=== PATIENT | male | born 1970 | race Two or more races ===

== ENCOUNTER 2024-05-26 11:44 | Emergency (ER) | payer MEDICARE, MEDICAID ==
[~2024-05-26] VITALS: Ht 170.2 cm; Wt 65.0 kg
[2024-05-26] MEDS ORDERED: CLON0.1T PO (13:06)
[2024-05-26] MEDS ORDERED: BACL10TA PO (13:06)
[2024-05-26] MEDS ORDERED: TRAZ1TAB12 PO (13:06)
[2024-05-26 13:22] VITALS: BP 107/71; PULSE 60; RESP 16; TEMP 98.5; O2SAT 98
[2024-05-27] MEDS ORDERED: CLON0.5T3 PO (15:51)
[2024-05-27] MEDS ORDERED: FAMO20TA10 PO (15:52)
[2024-05-27] MEDS ORDERED: DOCU-94 PO (15:53)
[2024-05-27] MEDS ORDERED: SENN-58 PO (15:54)
[2024-05-27] MEDS ORDERED: METH500T3 PO (15:55)
[2024-05-27] MEDS ORDERED: TIZA4CAP PO (15:55)
== END 2024-05-26 13:27 | disposition home or self-care (01) ==
LOC: ER 11:44
DX: F41.9 Anxiety disorder, unspecified (principal); I10 Essential (primary) hypertension; K21.9 Gastro-esophageal reflux disease without esophagitis; Z76.0 Encounter for issue of repeat prescription

== ENCOUNTER 2024-05-27 09:06 | Inpatient (IN) | payer MEDICARE, MEDICAID ==
[~2024-05-27] VITALS: Ht 162.6 cm; Wt 45.1 kg
[~2024-05-27 09:06] MED LIST: BACL10TA PO; CLON0.1T PO; TRAZ1TAB12 PO
[2024-05-27 09:25] VITALS: PULSE 52; RESP 15; O2SAT 98
[2024-05-27 09:52] LABS: Basophils # (auto) 0 10 ^3/uL (0-0.2); Eosinophils # (auto) 0.2 10 ^3/uL (0-0.8); Eosinophils % (auto) 4.7 % (0.0-7.0); Hematocrit 44.7 % (41.0-53.0); Hemoglobin 15.1 g/dL (13.5-17.5); Lymphocytes # (auto) 0.8 10 ^3/uL (0.4-5.4); Lymphocytes % (auto) 24.3 % (10.0-50.0); Mean Corpuscular Hemoglobin 30.3 pg (28.0-32.0); Mean Corpuscular Hgb Conc. 33.8 g/dL (32.0-36.0); Mean Corpuscular Volume 89.6 fL (80.0-100.0); Monocytes # (auto) 0.3 10 ^3/uL (0-1.3); Monocytes % (auto) 8.2 % (0.0-12.0); Neutrophils # (auto) 2.1 10 ^3/uL (1.6-8.6); Neutrophils % (auto) 61.8 % (37.0-80.0); Nucleated Red Blood Cells % 0.1 %; Platelet Count (auto) 160 10^3/uL (140-450); Red Blood Cells 4.99 10^6/uL (4.5-5.90); Red Cell Distribution Width 13.5 % (11.8-14.3); White Blood Cell 3.5 10^3/uL (4.4-10.8)
[2024-05-27 10:02] LABS: Chloride 109 mmol/L (98-107); Potassium 4.3 mmol/L (3.5-5.1); Sodium 141 mmol/L (136-145)
[2024-05-27 10:03] LABS: Anion Gap 0 (5-15); Carbon Dioxide 32 mmol/L (20-30)
[2024-05-27 10:04] LABS: Calcium 9.7 mg/dL (8.7-10.4)
[2024-05-27 10:08] LABS: BUN/Creatinine Ratio 10.3 (10.0-20.0); Blood Urea Nitrogen 12 mg/dL (9-23); Glucose 88 mg/dL (74-106)
[2024-05-27] MEDS: SODIUM CHLORIDE 0.9% 1,000 ML IVB ONE (10:25)
[2024-05-27] MEDS: SODIUM CHLORIDE 0.9% 1,000 ML IV ONE (11:48)
[2024-05-27] MEDS: SODIUM CHLORIDE 0.9% 1,000 ML IV SCH (12:00)
[2024-05-27] MEDS ORDERED: NITROGLYCERIN 0.4 MG SL TAB SL PRN (12:15)
[2024-05-27] MEDS ORDERED: ONDANSETRON HCL 4 MG/2 ML VIAL IV PRN (12:15)
[2024-05-27] MEDS ORDERED: DOCUSATE SOD 100 MG CAP PO PRN (12:15)
[2024-05-27] MEDS: LORazepam 2MG/ML-1ML VIAL IV ONE (13:20)
[2024-05-27] MEDS: PANTOPRAZOLE 40 MG/10 ML VIAL INJ IV ONE (13:20)
[2024-05-27] MEDS ORDERED: CLON0.5T3 PO (15:51)
[2024-05-27] MEDS ORDERED: FAMO20TA10 PO (15:52)
[2024-05-27] MEDS ORDERED: DOCU-94 PO (15:53)
[2024-05-27] MEDS ORDERED: SENN-58 PO (15:54)
[2024-05-27] MEDS ORDERED: TIZA4CAP PO (15:55)
[2024-05-27] MEDS ORDERED: METH500T3 PO (15:55)
[2024-05-27 17:00] VITALS: BP 142/90; PULSE 58; RESP 16; TEMP 97.7; O2SAT 97
[2024-05-27 20:00] VITALS: PULSE 58; PULSE 67; RESP 16; O2SAT 97
[2024-05-27] MEDS: CYCLOBENZAPRINE HCL 10 MG TAB PO ONE (20:28)
[2024-05-27 21:00] VITALS: BP 122/74; PULSE 65; RESP 18; TEMP 97.9; O2SAT 96
[2024-05-27] MEDS: CYCLOBENZAPRINE HCL 10 MG TAB PO SCH (22:00)
[2024-05-28] VITALS (7 sets, daily range): BP systolic 122–134; BP diastolic 73–98; PULSE 55–116; RESP 16–20; TEMP 97.6–98.6; O2SAT 96–99
[2024-05-28 06:00] LABS: Alanine Aminotransferase 41 U/L (7-40); Albumin 4.3 g/dL (3.2-4.8); Alkaline Phosphatase 81 U/L (46-116); Anion Gap 6 (5-15); Aspartate Aminotransferase 35 U/L (13-40); BUN/Creatinine Ratio 10.7 (10.0-20.0); Bilirubin, Total 0.9 mg/dL (0.2-1.0); Blood Urea Nitrogen 11 mg/dL (9-23); Calcium 9.3 mg/dL (8.7-10.4); Carbon Dioxide 27 mmol/L (20-30); Chloride 107 mmol/L (98-107); Glucose 84 mg/dL (74-106); Potassium 4.5 mmol/L (3.5-5.1); Sodium 140 mmol/L (136-145); Total Protein 6.8 g/dL (5.7-8.2)
[2024-05-28 07:17] LABS: Basophils # (auto) 0 10 ^3/uL (0-0.2); Basophils % (auto) 0.9 % (0.0-2.0); Eosinophils # (auto) 0.2 10 ^3/uL (0-0.8); Eosinophils % (auto) 4.2 % (0.0-7.0); Hematocrit 45.5 % (41.0-53.0); Hemoglobin 15.7 g/dL (13.5-17.5); Lymphocytes % (auto) 23.2 % (10.0-50.0); Mean Corpuscular Hemoglobin 30.4 pg (28.0-32.0); Mean Corpuscular Hgb Conc. 34.5 g/dL (32.0-36.0); Mean Corpuscular Volume 88.3 fL (80.0-100.0); Monocytes # (auto) 0.3 10 ^3/uL (0-1.3); Monocytes % (auto) 7.4 % (0.0-12.0); Neutrophils # (auto) 2.7 10 ^3/uL (1.6-8.6); Neutrophils % (auto) 64.3 % (37.0-80.0); Nucleated Red Blood Cells % 0.2 %; Platelet Count (auto) 162 10^3/uL (140-450); Red Blood Cells 5.15 10^6/uL (4.5-5.90); Red Cell Distribution Width 13.2 % (11.8-14.3); White Blood Cell 4.2 10^3/uL (4.4-10.8)
[2024-05-28 07:48] LABS: Urine Bacteria None Seen /hpf (None Seen)
[2024-05-28 08:13] LABS: Urine Blood Negative /uL (Negative); Urine Clarity Clear (Clear); Urine Color Colorless (Yellow); Urine Protein, UAD Negative (Negative); Urine Specific Gravity 1.012 (1.001-1.035); Urine Urobilinogen Normal (Negative); Urine WBC 1 /hpf (0 - 3)
[2024-05-28] MEDS: ENOXAPARIN SOD 40 MG/0.4 ML SYRINGE SC SCH (08:33)
[2024-05-28] MEDS: PANTOPRAZOLE 40 MG/10 ML VIAL INJ IV SCH (08:33)
[2024-05-28 14:38] LABS: Amphetamine Screen, Urine Neg (NEGATIVE); Benzodiazephine Screen, Urine Neg (NEGATIVE)
[2024-05-28 14:40] LABS: Barbiturate Scree,Urine Neg (NEGATIVE); Cocaine Screen, Urine Neg (NEGATIVE); Opiate Scree,Urine Neg (NEGATIVE)
[2024-05-28 14:41] LABS: Cannabinoid Screen, Urine Neg (NEGATIVE); Phencyclidine Screen, Urine Neg (NEGATIVE)
[2024-05-28] MEDS: LORazepam 2MG/ML-1ML VIAL IV PRN (17:11)
[2024-05-28] MEDS: clonazePAM 0.5 MG TAB PO SCH (21:42)
[2024-05-28] MEDS: BACLOFEN 10 MG TAB PO SCH (21:42)
[2024-05-29] VITALS (7 sets, daily range): BP systolic 129–149; BP diastolic 81–97; PULSE 60–89; RESP 17–20; TEMP 97.7–98.3; O2SAT 96–99
[2024-05-29 05:56] LABS: Basophils # (auto) 0 10 ^3/uL (0-0.2); Basophils % (auto) 0.6 % (0.0-2.0); Eosinophils # (auto) 0.2 10 ^3/uL (0-0.8); Eosinophils % (auto) 3.2 % (0.0-7.0); Hematocrit 45.4 % (41.0-53.0); Lymphocytes # (auto) 1.2 10 ^3/uL (0.4-5.4); Lymphocytes % (auto) 20.3 % (10.0-50.0); Mean Corpuscular Hemoglobin 30.7 pg (28.0-32.0); Mean Corpuscular Hgb Conc. 35.2 g/dL (32.0-36.0); Mean Corpuscular Volume 87.4 fL (80.0-100.0); Monocytes # (auto) 0.6 10 ^3/uL (0-1.3); Monocytes % (auto) 10.8 % (0.0-12.0); Neutrophils # (auto) 3.8 10 ^3/uL (1.6-8.6); Neutrophils % (auto) 65.1 % (37.0-80.0); Nucleated Red Blood Cells % 0.1 %; Platelet Count (auto) 170 10^3/uL (140-450); Red Blood Cells 5.19 10^6/uL (4.5-5.90); Red Cell Distribution Width 13.3 % (11.8-14.3); White Blood Cell 5.8 10^3/uL (4.4-10.8)
[2024-05-29 05:58] LABS: Alanine Aminotransferase 36 U/L (7-40); Albumin 4.5 g/dL (3.2-4.8); Alkaline Phosphatase 81 U/L (46-116); Anion Gap 6 (5-15); Aspartate Aminotransferase 35 U/L (13-40); BUN/Creatinine Ratio 7.3 (10.0-20.0); Blood Urea Nitrogen 7 mg/dL (9-23); Calcium 9.5 mg/dL (8.7-10.4); Carbon Dioxide 25 mmol/L (20-30); Chloride 108 mmol/L (98-107); Glucose 88 mg/dL (74-106); Potassium 3.9 mmol/L (3.5-5.1); Sodium 139 mmol/L (136-145)
[2024-05-29] MEDS: MORPHINE SULFATE INJ 2 MG/ml SYRG IV PRN (10:04)
[2024-05-29] MEDS: traZODone HCL 50 MG TAB PO SCH (22:00)
[2024-05-30] VITALS (7 sets, daily range): BP systolic 110–130; BP diastolic 60–94; PULSE 60–98; RESP 16–22; TEMP 97.8–98.6; O2SAT 93–100
[2024-05-30 06:30] LABS: Basophils # (auto) 0 10 ^3/uL (0-0.2); Basophils % (auto) 0.6 % (0.0-2.0); Eosinophils # (auto) 0.3 10 ^3/uL (0-0.8); Hematocrit 45.7 % (41.0-53.0); Hemoglobin 16.4 g/dL (13.5-17.5); Lymphocytes # (auto) 1.1 10 ^3/uL (0.4-5.4); Lymphocytes % (auto) 21.1 % (10.0-50.0); Mean Corpuscular Hemoglobin 31.2 pg (28.0-32.0); Mean Corpuscular Hgb Conc. 35.8 g/dL (32.0-36.0); Mean Corpuscular Volume 87.2 fL (80.0-100.0); Monocytes # (auto) 0.4 10 ^3/uL (0-1.3); Monocytes % (auto) 8.9 % (0.0-12.0); Neutrophils # (auto) 3.2 10 ^3/uL (1.6-8.6); Neutrophils % (auto) 63.4 % (37.0-80.0); Platelet Count (auto) 168 10^3/uL (140-450); Red Blood Cells 5.25 10^6/uL (4.5-5.90); Red Cell Distribution Width 13.3 % (11.8-14.3)
[2024-05-30 06:35] LABS: Alanine Aminotransferase 39 U/L (7-40); Albumin 4.4 g/dL (3.2-4.8); Alkaline Phosphatase 84 U/L (46-116); Anion Gap 7 (5-15); Aspartate Aminotransferase 36 U/L (13-40); BUN/Creatinine Ratio 8.5 (10.0-20.0); Blood Urea Nitrogen 8 mg/dL (9-23); Calcium 9.9 mg/dL (8.7-10.4); Carbon Dioxide 26 mmol/L (20-30); Chloride 105 mmol/L (98-107); Glucose 79 mg/dL (74-106); Potassium 3.8 mmol/L (3.5-5.1); Sodium 138 mmol/L (136-145)
[2024-05-30 06:36] LABS: Bilirubin, Total 1.2 mg/dL (0.2-1.0)
[2024-05-30] MEDS: ACETAMINOPHEN 325 MG TAB PO PRN (11:37)
[2024-05-30] MEDS ORDERED: MORPHINE SULFATE INJ 2 MG/ml SYRG IV PRN (14:30)
[2024-05-30] MEDS: TAMSULOSIN HYDROCHLORIDE 0.4 MG CAP PO ONE (16:43)
[2024-05-31 05:00] VITALS: BP 107/74; PULSE 65; RESP 16; TEMP 97.9; O2SAT 96
[2024-05-31] MEDS: PANTOPRAZOLE 40 MG TAB PO SCH (05:20)
[2024-05-31 08:11] LABS: Alanine Aminotransferase 40 U/L (7-40); Albumin 4.2 g/dL (3.2-4.8); Alkaline Phosphatase 80 U/L (46-116); Anion Gap 8 (5-15); Aspartate Aminotransferase 35 U/L (13-40); BUN/Creatinine Ratio 16.5 (10.0-20.0); Blood Urea Nitrogen 15 mg/dL (9-23); Calcium 9.6 mg/dL (8.7-10.4); Carbon Dioxide 24 mmol/L (20-30); Chloride 106 mmol/L (98-107); Glucose 73 mg/dL (74-106); Potassium 3.8 mmol/L (3.5-5.1); Sodium 138 mmol/L (136-145)
[2024-05-31 08:12] LABS: Total Protein 6.7 g/dL (5.7-8.2)
[2024-05-31 08:30] LABS: Basophils # (auto) 0 10 ^3/uL (0-0.2); Basophils % (auto) 0.8 % (0.0-2.0); Eosinophils # (auto) 0.2 10 ^3/uL (0-0.8); Hematocrit 44.4 % (41.0-53.0); Hemoglobin 15.5 g/dL (13.5-17.5); Lymphocytes # (auto) 0.7 10 ^3/uL (0.4-5.4); Lymphocytes % (auto) 15.1 % (10.0-50.0); Mean Corpuscular Hemoglobin 30.2 pg (28.0-32.0); Mean Corpuscular Hgb Conc. 34.8 g/dL (32.0-36.0); Mean Corpuscular Volume 86.8 fL (80.0-100.0); Monocytes # (auto) 0.4 10 ^3/uL (0-1.3); Monocytes % (auto) 8.1 % (0.0-12.0); Neutrophils # (auto) 3.4 10 ^3/uL (1.6-8.6); Platelet Count (auto) 163 10^3/uL (140-450); Red Blood Cells 5.12 10^6/uL (4.5-5.90); Red Cell Distribution Width 13.1 % (11.8-14.3); White Blood Cell 4.7 10^3/uL (4.4-10.8)
[2024-05-31 08:44] VITALS: BP 115/64; PULSE 79; RESP 20; TEMP 98.4; O2SAT 98
[2024-05-31 12:38] VITALS: BP 104/75; PULSE 59; RESP 18; TEMP 98.1; O2SAT 96
[2024-05-31] MEDS ORDERED: BACL10TA PO (14:23)
[2024-05-31 15:06] LABS: Urine WBC None Seen /hpf (0 - 3)
[2024-05-31 15:58] LABS: Urine Bacteria FEW /hpf (None Seen); Urine Blood 3+ /uL (Negative); Urine Budding Yeast OCCASIONAL /hpf (None Seen); Urine Clarity Turbid (Clear); Urine Color Light-Orange (Yellow); Urine Mucus FEW (None Seen); Urine Protein, UAD 1+ (Negative); Urine Specific Gravity 1.023 (1.001-1.035); Urine Urobilinogen Normal (Negative); Urine pH 5.5 (5.0-9.0)
[2024-05-31 17:10] VITALS: BP 114/82; PULSE 68; RESP 19; TEMP 98.6; O2SAT 99
[2024-05-31] MEDS: TAMSULOSIN HYDROCHLORIDE 0.4 MG CAP PO SCH (18:31)
[2024-05-31 21:00] VITALS: BP 115/58; PULSE 83; RESP 17; TEMP 98; O2SAT 95
[2024-06-01] VITALS (7 sets, daily range): BP systolic 93–114; BP diastolic 61–80; PULSE 62–97; RESP 14–18; TEMP 97.7–98.4; O2SAT 95–97
[2024-06-01 07:05] LABS: Basophils # (auto) 0 10 ^3/uL (0-0.2); Basophils % (auto) 0.8 % (0.0-2.0); Eosinophils # (auto) 0.2 10 ^3/uL (0-0.8); Eosinophils % (auto) 4.3 % (0.0-7.0); Hematocrit 45.1 % (41.0-53.0); Hemoglobin 15.4 g/dL (13.5-17.5); Lymphocytes # (auto) 0.9 10 ^3/uL (0.4-5.4); Lymphocytes % (auto) 19.9 % (10.0-50.0); Mean Corpuscular Hemoglobin 30.5 pg (28.0-32.0); Mean Corpuscular Hgb Conc. 34.2 g/dL (32.0-36.0); Mean Corpuscular Volume 89.2 fL (80.0-100.0); Monocytes # (auto) 0.4 10 ^3/uL (0-1.3); Monocytes % (auto) 8.9 % (0.0-12.0); Neutrophils % (auto) 66.1 % (37.0-80.0); Nucleated Red Blood Cells % 0.2 %; Platelet Count (auto) 158 10^3/uL (140-450); Red Blood Cells 5.06 10^6/uL (4.5-5.90); Red Cell Distribution Width 13.4 % (11.8-14.3); White Blood Cell 4.6 10^3/uL (4.4-10.8)
[2024-06-01 07:08] LABS: Anion Gap 6 (5-15); Calcium 9.8 mg/dL (8.7-10.4); Carbon Dioxide 27 mmol/L (20-30); Chloride 105 mmol/L (98-107); Potassium 3.8 mmol/L (3.5-5.1); Sodium 138 mmol/L (136-145)
[2024-06-01 07:14] LABS: BUN/Creatinine Ratio 13.4 (10.0-20.0); Blood Urea Nitrogen 13 mg/dL (9-23); Glucose 80 mg/dL (74-106)
[2024-06-01] MEDS ORDERED: TAMS-35 PO (12:12)
[2024-06-02 06:14] LABS: Basophils # (auto) 0 10 ^3/uL (0-0.2); Basophils % (auto) 0.8 % (0.0-2.0); Eosinophils # (auto) 0.2 10 ^3/uL (0-0.8); Eosinophils % (auto) 4.8 % (0.0-7.0); Hematocrit 46.1 % (41.0-53.0); Lymphocytes # (auto) 0.9 10 ^3/uL (0.4-5.4); Lymphocytes % (auto) 20.6 % (10.0-50.0); Mean Corpuscular Hemoglobin 30.6 pg (28.0-32.0); Mean Corpuscular Hgb Conc. 34.8 g/dL (32.0-36.0); Mean Corpuscular Volume 87.9 fL (80.0-100.0); Monocytes # (auto) 0.4 10 ^3/uL (0-1.3); Monocytes % (auto) 8.5 % (0.0-12.0); Neutrophils # (auto) 2.8 10 ^3/uL (1.6-8.6); Neutrophils % (auto) 65.3 % (37.0-80.0); Nucleated Red Blood Cells % 0.1 %; Platelet Count (auto) 168 10^3/uL (140-450); Red Blood Cells 5.24 10^6/uL (4.5-5.90); Red Cell Distribution Width 13.4 % (11.8-14.3); White Blood Cell 4.3 10^3/uL (4.4-10.8)
[2024-06-02 06:27] LABS: Chloride 107 mmol/L (98-107); Potassium 3.9 mmol/L (3.5-5.1); Sodium 139 mmol/L (136-145)
[2024-06-02 06:28] LABS: Anion Gap 6 (5-15); Calcium 9.9 mg/dL (8.7-10.4); Carbon Dioxide 26 mmol/L (20-30)
[2024-06-02 06:33] LABS: Blood Urea Nitrogen 16 mg/dL (9-23); Glucose 86 mg/dL (74-106)
[2024-06-02 08:00] VITALS: BP_SYST 140; BP_SYST 85; BP_DIAS 55; BP_DIAS 71; PULSE 67; PULSE 78; PULSE 87; RESP 16; RESP 18; O2SAT 94; O2SAT 95; O2SAT 96
[2024-06-02 08:06] LABS: PSA Free 0.7 ng/mL; Prostate Specific Antigen 2.6 ng/mL (0.0-4.0)
== END 2024-06-02 14:15 | disposition home or self-care (01) | DRG 57 ==
LOC: ER 09:06 → TELE 12:15 → TELE-CENTR 15:03 → TELE-EAST 17:37 → EAST 05-30 18:26
PROVIDERS: ADMIT Internal Medicine; ATTEND Internal Medicine
DX: G23.0 Hallervorden-Spatz disease (principal); H30.893 Other chorioretinal inflammations, bilateral; R64 Cachexia; N40.1 Benign prostatic hyperplasia with lower urinary tract symptoms; K21.9 Gastro-esophageal reflux disease without esophagitis; L89.311 Pressure ulcer of right buttock, stage 1; R33.8 Other retention of urine; H35.52 Pigmentary retinal dystrophy; G89.29 Other chronic pain; M62.838 Other muscle spasm; H54.8 Legal blindness, as defined in USA; I10 Essential (primary) hypertension; Z79.899 Other long term (current) drug therapy
CPT/HCPCS: 36415; 70450; 71045; 74176; 80048; 80053; 80307; 81001; 84154; 84484; 85025; 96361; 96374; 96375; 99291; G0378; J2470

== ENCOUNTER 2024-06-15 10:30 | Day surgery (SDC) | payer MEDICARE, MEDICAID ==
[2024-06-14 15:18] LABS: Basophils # (auto) 0.1 10 ^3/uL (0-0.2); Eosinophils # (auto) 0.2 10 ^3/uL (0-0.8); Eosinophils % (auto) 2.8 % (0.0-7.0); Hematocrit 43.6 % (41.0-53.0); Hemoglobin 14.9 g/dL (13.5-17.5); Lymphocytes # (auto) 0.9 10 ^3/uL (0.4-5.4); Lymphocytes % (auto) 16.5 % (10.0-50.0); Mean Corpuscular Hemoglobin 30.2 pg (28.0-32.0); Mean Corpuscular Hgb Conc. 34.1 g/dL (32.0-36.0); Mean Corpuscular Volume 88.7 fL (80.0-100.0); Monocytes # (auto) 0.3 10 ^3/uL (0-1.3); Monocytes % (auto) 6.2 % (0.0-12.0); Neutrophils # (auto) 3.9 10 ^3/uL (1.6-8.6); Neutrophils % (auto) 73.5 % (37.0-80.0); Platelet Count (auto) 225 10^3/uL (140-450); Red Blood Cells 4.92 10^6/uL (4.5-5.90); Red Cell Distribution Width 13.4 % (11.8-14.3); White Blood Cell 5.3 10^3/uL (4.4-10.8)
[2024-06-14 15:22] LABS: Urine Amorphous Crystal FEW /hpf (None Seen); Urine Bacteria FEW /hpf (None Seen); Urine Blood 2+ /uL (Negative); Urine Clarity Ex.Turbid (Clear); Urine Color Colorless (Yellow); Urine Mucus FEW (None Seen); Urine Protein, UAD 1+ (Negative); Urine Specific Gravity 1.019 (1.001-1.035); Urine Urobilinogen Normal (Negative); Urine WBC 188 /hpf (0 - 3); Urine WBC Clumps PRESENT /hpf (None Seen)
[2024-06-14 15:36] LABS: INR 1.03 (0.9-1.15); Partial Thromboplastin Time 28.7 SEC (24.5-34.5); Prothrombin Time 10.9 sec (9.3-11.8)
[2024-06-14 16:00] LABS: Alanine Aminotransferase 33 U/L (7-40); Albumin 4.6 g/dL (3.2-4.8); Alkaline Phosphatase 83 U/L (46-116); Anion Gap 6 (5-15); Aspartate Aminotransferase 23 U/L (13-40); BUN/Creatinine Ratio 16.5 (10.0-20.0); Bilirubin, Total 0.5 mg/dL (0.2-1.0); Blood Urea Nitrogen 18 mg/dL (9-23); Calcium 10.1 mg/dL (8.7-10.4); Carbon Dioxide 30 mmol/L (20-30); Chloride 104 mmol/L (98-107); Glucose 96 mg/dL (74-106); Potassium 4.2 mmol/L (3.5-5.1); Sodium 140 mmol/L (136-145); Total Protein 7.2 g/dL (5.7-8.2)
[~2024-06-15] VITALS: Ht 152.4 cm; Wt 46.7 kg
[~2024-06-15 10:30] MED LIST changes: +CLON0.5T3 PO; +FAMO20TA10 PO; +METH500T3 PO; +SENN-58 PO; +TAMS-35 PO
[2024-06-15] MEDS ORDERED: fentaNYL CITRATE 100 MCG/2 ML VL ONE (17:03)
[2024-06-15] MEDS ORDERED: PROPOFOL 10 MG/ML 20 ML IV ONE (17:03)
[2024-06-15] MEDS ORDERED: ePHEDrine SULFATE 50 MG/ML AMP ONE (17:17)
[2024-06-15] MEDS: ceFAZolin 2 GM/D5W100ml 100 ML IV ONE (17:31)
[2024-06-15] MEDS ORDERED: ONDANSETRON HCL 4 MG/2 ML VIAL ONE (17:35)
[2024-06-15] MEDS ORDERED: DexAMETHasone SOD PHOS 10MG/1ML VIAL INJ ONE (17:35)
[2024-06-15 18:00] VITALS: PULSE 41; RESP 14; TEMP 98.4; O2SAT 100
[2024-06-15 18:10] VITALS: PULSE 50; RESP 12; O2SAT 97
[2024-06-15 18:15] VITALS: BP 140/92; PULSE 58; RESP 9; O2SAT 100
== END 2024-06-15 13:52 | disposition home or self-care (01) ==
LOC: SUR 10:30
PROVIDERS: ATTEND Urology
DX: N40.1 Benign prostatic hyperplasia with lower urinary tract symptoms (principal); N13.8 Other obstructive and reflux uropathy; R33.8 Other retention of urine; K21.9 Gastro-esophageal reflux disease without esophagitis; Z79.899 Other long term (current) drug therapy; Z86.16 Personal history of COVID-19; Z86.2 Personal history of diseases of the blood and blood-forming organs and certain disorders involving the immune mechanism; Z98.890 Other specified postprocedural states
CPT/HCPCS: 36415; 52601; 80053; 81001; 85025; 85610; 85730; 87086; 87088; 87186; 88307; J1100; J2405; J2704; J3010; J7030